=== PATIENT | male | born 1990 | race Caucasian/White ===

== ENCOUNTER 2017-12-20 20:49 | Emergency (ER) | payer SELFPAY ==
[~2017-12-20] VITALS: Ht 188 cm; Wt 99.9 kg
[2017-12-20] MEDS ORDERED: CEFTRIAXONE 250 MG IM ONE (21:00)
[2017-12-20] MEDS ORDERED: AZITHROMYCIN 500 MG TABLET PO ONE (21:00)
[2017-12-20 21:15] VITALS: BP 141/90
[2017-12-20] MEDS ORDERED: PLEASE ENTER HEIGHT AND WEIGHT MC SCH (21:30)
[2017-12-20] MEDS ORDERED: PLEASE ENTER ALLERGIES MC SCH (21:30)
[2017-12-20 21:40] LABS: MICROSCOPIC INDICATED
[2017-12-20 21:41] LABS: CULTURE INDICATED? YES
[2017-12-20] MEDS ORDERED: CEFTRIAXONE 250 MG ONE (22:06)
[2017-12-20] MEDS ORDERED: AZITHROMYCIN 250 MG TABLET ONE (22:06)
[2017-12-20 22:17] LABS: BASOPHILS # (AUTO) 0.03 x10^3/uL (0-0.1); BASOPHILS % (AUTO) 0 % (0-1); EOSINOPHILS # (AUTO) 0.05 x10^3/uL (0-0.4); EOSINOPHILS % (AUTO) 0 % (1-7); LYMPHOCYTES # (AUTO) 2.27 x10^3/uL (1-3.4); LYMPHOCYTES % (AUTO) 19 % (22-44); MD NO; MEAN CORPUSCULAR HEMOGLOBIN 29.7 pg (27.5-34.5); MEAN CORPUSCULAR VOLUME 87.3 fL (81-97); MONOCYTES # (AUTO) 0.82 x10^3/uL (0.2-0.8); MONOCYTES % (AUTO) 7 % (2-9); NEUTROPHILS # (AUTO) 8.67 x10^3/uL (1.8-6.8); NEUTROPHILS % (AUTO) 73 % (42-75); PLATELET COUNT 277 x10^3/uL (130-400); RED BLOOD COUNT 5.81 x10^6/uL (4.38-5.82); RED CELL DISTRIBUTION WIDTH 13.6 % (9.4-14.8)
[2017-12-20 22:25] LABS: ALANINE AMINOTRANSFERASE 28 U/L (12-78); ALBUMIN 4.1 g/dL (3.4-5.0); ANION GAP 10 mmol/L (5-15); CALCIUM 8.8 mg/dL (8.5-10.1); CHLORIDE 105 mmol/L (98-107); CREATININE 1.04 mg/dL (0.7-1.3)
[2017-12-20 22:28] LABS: ALKALINE PHOSPHATASE 86 U/L (45-117); BILIRUBIN,TOTAL 0.6 mg/dL (0.2-1.0); TOTAL PROTEIN 8.5 g/dL (6.4-8.2)
[2017-12-20] MEDS ORDERED: IBUPROFEN 200 MG TABLET ONE (22:29)
[2017-12-20] MEDS ORDERED: IBUPROFEN 200 MG TABLET PO ONE (22:30)
== END 2017-12-20 23:51 | disposition home or self-care (01) ==
LOC: ED 22:26
DX: N30.90 Cystitis, unspecified without hematuria (principal); A56.01 Chlamydial cystitis and urethritis; F17.200 Nicotine dependence, unspecified, uncomplicated
CPT/HCPCS: 36415; 80053; 81001; 83690; 85025; 86703; 87086; 87491; 87591; 87899; 96372; 99284; J0696; G0435

== ENCOUNTER → 2018-08-25 | Emergency (ER) | payer MEDICAID, OTHER ==
[~2018-08-25] VITALS: Ht 188 cm; Wt 113.0 kg
[~2018-08-25] MED LIST: HYDROcodone/APAP 5/325 TABLET ONE; HYDROcodone/APAP 5/325 TABLET PO ONE
[2018-08-25 17:35] VITALS: BP 130/70
== END ==
LOC: ED 18:00
DX: K04.7 Periapical abscess without sinus (principal); K02.9 Dental caries, unspecified; F17.200 Nicotine dependence, unspecified, uncomplicated
CPT/HCPCS: 99283

== ENCOUNTER 2018-08-26 15:36 | Emergency (ER) | payer MEDICAID ==
[~2018-08-26] VITALS: Ht 188 cm; Wt 113.3 kg
[2018-08-26 15:43] VITALS: BP 150/89
[2018-08-26] MEDS ORDERED: HYDROcodone/APAP 5/325 TABLET ONE (16:19)
[2018-08-26] MEDS ORDERED: HYDROcodone/APAP 5/325 TABLET PO ONE (16:30)
== END 2018-08-26 16:29 | disposition home or self-care (01) ==
LOC: ED 16:23
DX: K02.9 Dental caries, unspecified (principal); K04.7 Periapical abscess without sinus; F17.200 Nicotine dependence, unspecified, uncomplicated
CPT/HCPCS: 99283

== ENCOUNTER 2021-03-03 22:03 | Emergency (ER) | payer SELFPAY ==
[~2021-03-03] VITALS: Ht 188 cm; Wt 115.0 kg
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
[2021-03-03] MEDS ORDERED: LIDOCAINE 2%, 20ML SQ ONE (23:00)
[2021-03-03] MEDS ORDERED: CEFAZOLIN 1,000 MG IM ONE (23:00)
[2021-03-03] MEDS ORDERED: CEFAZOLIN 1,000 MG ONE (23:13)
[2021-03-03] MEDS ORDERED: LIDOCAINE-MPF 2% ,5ML ONE (23:14)
--- NOTE | 2021-03-03 23:29 | NUR ---
PT STILL WITH PERIODS OF AGGITATION, ARGUING WITH OFFICERS ABOUT WANTING TO BE RELEASED, SITTING UP IN [place] AND YELLING, "BRO I GOT A FAMILY, IM ON [place], DO YOU UNDERSTAND THAT?", "I WOULD HAVE RAN FROM YOU GUYS AND GOTTEN AWAY, DO YOUR JOB. MY BEST FRIEND IS BLAKE MOORE, COME ON MAN". PT WILL BECOME LESS AGGRESSIVE FOR STAFF, CALLING THIS RN "BABY" DESPITE BEING ASKED TO STOP MULTIPLE TIMES.
--- NOTE | 2021-03-04 00:38 | NUR ---
ER STUDENT MD AT BEDSIDE FOR SUTURES
[2021-03-04] MEDS ORDERED: HYDROcodone/APAP 5/325 TABLET ONE (01:08)
[2021-03-04] MEDS ORDERED: HYDROcodone/APAP 5/325 TABLET PO ONE (01:30)
[2021-03-04 02:00] VITALS: BP 151/74
== END 2021-03-04 02:05 | disposition home or self-care (01) ==
LOC: ED 22:33
DX: S02.2XXA Fracture of nasal bones, initial encounter for closed fracture (principal); S01.01XA Laceration without foreign body of scalp, initial encounter; S01.21XA Laceration without foreign body of nose, initial encounter; S01.81XA Laceration without foreign body of other part of head, initial encounter; F17.200 Nicotine dependence, unspecified, uncomplicated; Y04.8XXA Assault by other bodily force, initial encounter; Y93.89 Activity, other specified; Y92.410 Unspecified street and highway as the place of occurrence of the external cause; Y99.8 Other external cause status
CPT/HCPCS: 12015; 36415; 70486; 86705; 86706; 86803; 87340; 87806; 96372; 99285; J0690; G0475